=== PATIENT | male | born 1980 | race Caucasian/White ===

== ENCOUNTER 2023-06-12 00:03 | Emergency (ER) | payer OTHER ==
--- OUTSIDE RECORDS SUMMARY | 2023-06-12 00:06 | XMS REPORT | Continuity of Care Document ---
:1980 Author Organization [facility] t Address [address] [facility] [address] [place] [id number] Care Team Providers Name Role Phone [facility] [facility] Primary Care Physician Unavailable FRANDY RAMIREZ Attending Clinician Unavailable FRANDY RAMIREZ Admitting Clinician Unavailable Payers Payer Name Policy Type Policy Number Effective Date Expiration Date S jesus TML [employer] CLAIMS [id number] 2018 00:00:00 Problems This patient has no known problems. Allergies, Adverse Reactions, Alerts Allergy Allergy Status Severity Reaction(s) Onset Inactive Treating Comm ents Source Name Type Date Date Clinician [facility] Active Swelling [facility] of 00:00: [address] Medications This patient has no known medications. Procedures This patient has no known procedures. Encounters Start End Encounter Admission Attending Care Care Encounter Source Date/Time Date/Time Type Type Clinicians Facility Department ID 2018-09-27 2018-09-27 Emergency X FARHAD RAMIREZ ERT [id number] [facility] 16:51:39 18:28:00 FRANDY it[facility] of [facility] Results This patient has no known results.
--- NOTE | 2023-06-12 01:08 | EDPHYS ---
Physician Documentation [facility] Name: José Luis Marsh Age: 43 yrs Sex: Male : 1980 Arrival Date: 06/12/2023 Time: 00:03 Bed DX4 Private MD: ED Physician Adam Arcos HPI: 06/12 00:50 This 43 yrs old Male presents to ER via Ambulatory with complaints of Ear Pain, Sore cp Throat. 00:50 The patient presents with pain, that is acute. The complaints affect the right ear. cp Associated signs and symptoms: Pertinent positives: sore throat, cough, Pertinent negatives: fever, vomiting, diarrhea. Severity of symptoms: in the emergency department the symptoms are unchanged despite home interventions. Historical: - Allergies: 00:30 No Known Allergies; bp - Home Meds: 00:30 Propranolol Oral [Active]; bp - PMHx: 00:30 Hypertensive disorder; bp - Immunization history:: Adult Immunizations up to date. - Social history:: Smoking status: Patient denies any tobacco usage or history of. ROS: 00:51 Constitutional: Negative for body aches, chills, fever, poor PO intake, cp 00:51 ENT: Positive for ear pain, sore throat, 00:51 Respiratory: Positive for cough, "sounds productive", Negative for wheezing, 00:51 Abdomen/GI: Negative for vomiting, diarrhea, constipation, Exam: 00:55 Constitutional: The patient appears in no acute distress, alert, awake, non-toxic, well cp developed, well nourished, 00:55 Head/Face: Normocephalic, atraumatic. cp 00:55 Eyes: Periorbital structures: appear normal, Conjunctiva: normal, no exudate, no injection, Sclera: no appreciated abnormality, Lids and lashes: appear normal, bilaterally, 00:55 ENT: External ear(s): are unremarkable, Ear canal(s): are normal, clear, TM's: dullness, bilaterally, Nose: is normal, Mouth: Lips: moist, Oral mucosa: pink and intact, moist, Posterior pharynx: Airway: no evidence of obstruction, patent, Tonsils: bilaterally enlarged, with erythema, no exudate, erythema, that is moderate, exudate, is not appreciated, Voice: is normal, 00:55 Neck: ROM/movement: is normal, is supple, no meningismus, no nuchal rigidity, Lymph nodes: lymphadenopathy is appreciated, anterior cervical nodes, 00:55 Chest/axilla: Inspection: normal, 00:55 Cardiovascular: Rate: normal, Rhythm: regular, 00:55 Respiratory: the patient does not display signs of respiratory distress, Respirations: cp normal, no use of accessory muscles, no retractions, labored breathing, is not present, Breath sounds: are clear throughout, no decreased breath sounds, no stridor, no wheezing, 00:55 Abdomen/GI: Exam negative for discomfort, distension, guarding, Inspection: abdomen cp appears normal, Vital Signs: 00:29 BP 163 / 98; Pulse 92; Resp 16; Temp 98.8; Pulse Ox 98% on R/A; Weight 97.52 kg; Height bp 5 ft. 10 in. ; 00:29 Body Mass Index 30.85 (97.52 kg, 177.8 cm) bp MDM: 00:20 Patient medically screened. cp 01:00 Differential diagnosis: otitis media, otitis externa, acute otalgia, cerumen impaction, cp strep throat. 01:08 Data reviewed: vital signs, nurses notes, lab test result(s). cp 01:08 I considered the following discharge prescriptions or medication management in the emergency department Medications were administered in the Emergency Department. See MAR. Counseling: I had a detailed discussion with the patient and/or guardian regarding the historical points, exam findings, and any diagnostic results supporting the discharge/admit diagnosis, lab results, to return to the emergency department if symptoms worsen or persist or if there are any questions or concerns that arise at home. Response to treatment: the patient's symptoms have mildly improved after treatment, and as a result, I will discharge patient. 06/12 00:25 Order name: Strep cp 06/12 01:07 Interpretation: Reviewed. cp Administered Medications: 01:09 Drug: Amoxicillin-Clavulanate PO 875 mg PO once Route: PO; bp 01:09 Follow up: Response: No adverse reaction bp Disposition: 03:54 Co-signature as Attending Physician, Adam Arcos MD I agree with the assessment sp4 and plan of care. I reviewed the patient's care provided by the Advanced Practice Provider and agree with the diagnosis and treatment plan. Disposition Summary: 06/12/23 01:08 Discharge Ordered Notes: Location: Home cp Problem: new cp Symptoms: have improved cp Condition: Stable cp Diagnosis - Streptococcal pharyngitis cp - Cough cp Followup: cp - With: Private Physician - When: 2 - 3 days - Reason: Worsening of condition Discharge Instructions: - Discharge Summary Sheet cp - Strep Throat, Adult cp - Cough, Adult cp Forms: - Medication Reconciliation Form cp - Thank You Letter cp - Antibiotic Education cp - Prescription Opioid Use cp - Patient Portal Instructions cp - Leadership Thank You Letter cp Prescriptions: - Augmentin 875-125 mg Oral Tablet - take 1 tablet ORAL route every 12 hours for 10 days; 20 tablet; Refills: 0, cp Product Selection Permitted - Tessalon Perles 100 mg Oral capsule - take 2 capsule ORAL route every 8 hours As needed; 30 capsule; Refills: 0, cp Product Selection Permitted Signatures: Dispatcher [employer] EDRaúl Guerrero PA PA cp Peltier, Brian, RN RN bp Potepalov, Sergey, MD MD sp4
--- NOTE | 2023-06-12 01:08 | ER ---
Nurse's Notes [facility] Name: José Luis Marsh Age: 43 yrs Sex: Male : 1980 Arrival Date: 06/12/2023 Time: 00:03 Bed DX4 Private MD: Diagnosis: Streptococcal pharyngitis;Cough Presentation: 06/12 00:29 Chief complaint: Patient states: 1 WK NASAL CONGESTION, SORE THROAT AND R EAR PAIN. bp Coronavirus screen: At this time, the client does not indicate any symptoms associated with coronavirus-19. Ebola Screen: No symptoms or risks identified at this time. Initial Sepsis Screen: Does the patient meet any 2 criteria? No. Patient's initial sepsis screen is negative. Does the patient have a suspected source of infection? No. Patient's initial sepsis screen is negative. Risk Assessment: Do you want to hurt yourself or someone else? Patient reports no desire to harm self or others. Onset of symptoms is unknown. 00:29 Method Of Arrival: Ambulatory bp 00:29 Acuity: PATRICE 4 bp Triage Assessment: 00:30 General: Appears in no apparent distress. uncomfortable, Behavior is calm, cooperative, bp appropriate for age. Pain: Complains of pain in neck. EENT: Reports nasal congestion pain when swallowing. Historical: - Allergies: 00:30 No Known Allergies; bp - Home Meds: 00:30 Propranolol Oral [Active]; bp - PMHx: 00:30 Hypertensive disorder; bp - Immunization history:: Adult Immunizations up to date. - Social history:: Smoking status: Patient denies any tobacco usage or history of. Screenin:14 [facility] ED Fall Risk Assessment (Adult) History of falling in the last 3 months, bp including since admission No falls in past 3 months (0 pts). Abuse screen: Denies threats or abuse. Denies injuries from another. Nutritional screening: No deficits noted. Tuberculosis screening: No symptoms or risk factors identified. Assessment: 01:14 Reassessment: GA HOME. bp Vital Signs: 00:29 BP 163 / 98; Pulse 92; Resp 16; Temp 98.8; Pulse Ox 98% on R/A; Weight 97.52 kg; Height bp 5 ft. 10 in. ; 00:29 Body Mass Index 30.85 (97.52 kg, 177.8 cm) bp ED Course: 00:07 Patient arrived in ED. [id number] 00:17 Raúl Watkins PA is PHCP. cp 00:17 Adam Arcos MD is Attending Physician. cp 00:30 Triage completed. bp 00:30 Strep Sent. rv1 00:30 Arm band placed on. bp 01:09 Lenny Flores, RN is Primary Nurse. bp 01:14 No provider procedures requiring assistance completed. Patient did not have IV access bp during this emergency room visit. 01:14 Patient has correct armband on for positive identification. bp Administered Medications: 01:09 Drug: Amoxicillin-Clavulanate PO 875 mg PO once Route: PO; bp 01:09 Follow up: Response: No adverse reaction bp Medication: 01:14 VIS not applicable for this client. bp Outcome: 01:08 Discharge ordered by . cp 01:14 Discharged to home ambulatory, bp 01:14 Condition: stable 01:14 Discharge instructions given to patient, Instructed on discharge instructions, follow up and referral plans. medication usage, Demonstrated understanding of instructions, follow-up care, medications, Prescriptions given X 2, 01:15 Patient left the ED. bp Signatures: Raúl Watkins PA PA cp Lenny Flores, RN RN bp Lindsay Llanes [id number] Stephanie Wilson rv1
[2023-06-12] MEDS ORDERED: AMOX/K CLAV 875 MG TAB ONE (01:20)
[2023-06-12 01:29] VITALS: BP 163/98; TEMP 98.8; O2SAT 98
== END 2023-06-12 01:15 | disposition home or self-care (01) ==
LOC: ER 00:03
DX: J02.0 Streptococcal pharyngitis (principal); R05.9 Cough, unspecified; I10 Essential (primary) hypertension
CPT/HCPCS: 87081; 99283